=== PATIENT | female | born 1955 | race Caucasian/White ===

== ENCOUNTER 2022-05-06 12:25 | Emergency (ER) | payer OTHER ==
[~2022-05-06] VITALS: Ht 160 cm; Wt 86.2 kg
[2022-05-06 12:37] VITALS: BP_SYST 154
--- NOTE | 2022-05-06 12:37 | NUR ---
Patient to ER bed 7 to gown for evaluation. Side rails up. Report given to Marga PAREDES.
--- NOTE | 2022-05-06 12:40 | NUR ---
Pt alert and oriented upon face to face assessment. Thai speaking. Pt here from home reporting L side body pain 9/10 s/p fall 2 days ago. Pt stated she tripped on toys and wasn't able to hold onto anything to catch her fall. Did hit her head but denies LOC. Pending MD juan.
--- NOTE | 2022-05-06 12:46 | NUR ---
ER Dr. Holder at bedside examining patient.
[2022-05-06] MEDS ORDERED: ONDANSETRON 4 MG ODT TAB PO ONE (13:00)
[2022-05-06] MEDS ORDERED: MORPHINE 4 MG INJ. 4 MG/ML VIAL IM ONE (13:00)
--- NOTE | 2022-05-06 13:00 | NUR ---
X-rays being done at bedside.
[2022-05-06] MEDS ORDERED: TRAM50TA PO (13:33)
[2022-05-06 14:07] VITALS: BP_SYST 150
--- NOTE | 2022-05-06 14:08 | NUR ---
Patient given written and verbal discharge instructions and verbalizes understanding. ER MD discussed with patient the results and treatment provided. Patient in stable condition. ID arm band removed. Rx of Tramadol given. Patient educated on pain management and to follow up with PMD. Pain Scale 0/10. Opportunity for questions provided and answered. Medication side effect fact sheet provided.
== END 2022-05-06 14:07 | disposition home or self-care (01) ==
LOC: SED 12:25
DX: S40.012A Contusion of left shoulder, initial encounter (principal); S70.02XA Contusion of left hip, initial encounter; M54.32 Sciatica, left side; W18.39XA Other fall on same level, initial encounter; Y93.89 Activity, other specified; Y92.89 Other specified places as the place of occurrence of the external cause; Y99.8 Other external cause status
CPT/HCPCS: 73030; 73502; 96372; 99284; J2270; Q0162